=== PATIENT | female | born 1985 | race Caucasian/White ===

== ENCOUNTER 2016-05-06 16:25 | Emergency (ER) | payer MEDICAID ==
[~2016-05-06] VITALS: Wt 55.0 kg
[~2016-05-06 16:25] MED LIST: AMO500 PO; HYDR-3498 PO; IBUP400T22 PO; NAPR-688 PO
[2016-05-06] MEDS ORDERED: ACET500C5 PO (16:47)
[2016-05-06] MEDS ORDERED: NAPR-260 PO (16:47)
[2016-05-06] MEDS ORDERED: AMOX1TAB10 PO (16:52)
--- NOTE | 2016-05-06 16:58 | ERD ---
ER Documentation Chief Complaint Date/Time DATE: 05/06/16 TIME: 16:55 Chief Complaint sore throat and fever for a few days. no fevers. no coughing or congestion HPI This 30-year-old female who presents to emergency department today complaining of sore throat for the past 6 days, fever that started last night, pain with swallowing eating and some right ear pain and jaw pain. Denies any cough, vomiting or diarrhea. ROS All systems reviewed and are negative except as per history of present illness. Medications Home Meds Active Scripts Amoxicillin/Potassium Clav (Amox-Clav 875-125 mg Tablet) 875-125 mg Tab, 1 TAB PO BID for 7 Days, #14 TAB Prov:ZAIRE HUITRONC 05/06/16 Acetaminophen* (Tylophen*) 500 Mg Capsule, 1 CAP PO Q6H Y for PAIN AND OR ELEVATED TEMP, #30 CAP Prov:ZAIRE HUITRONC 05/06/16 Naproxen* (Naprosyn*) 500 Mg Tablet, 500 MG PO BID Y for PAIN AND/OR INFLAMMATION, #30 TAB Prov:ZAIRE HUITRONC 05/06/16 Ibuprofen* (Motrin*) 400 Mg Tab, 400 MG PO Q6, #30 TAB Prov:DAI CHANGC 11/10/15 Amoxicillin* (Amoxicillin*) 500 Mg Cap, 500 MG PO TID for 10 Days, CAP Prov:DAI CHANGC 11/10/15 Hydrocodone Bit-Acetaminophen* ([place]*) 5-325 Mg Tab, 1 TAB PO Q4H Y for PAIN, # 10 TAB Prov:KERRY HOWARD DO 08/11/15 Naproxen* (Naproxen*) 500 Mg Tablet, 500 MG PO BID Y for PAIN, #20 TAB Prov:KERRY HOWARD DO 08/11/15 Amoxicillin* (Amoxicillin*) 500 Mg Cap, 500 MG PO Q8, #30 CAP Prov:KERRY HOWARD DO 08/11/15 Allergies Allergies: Coded Allergies: No Known Allergy (Unverified , 09/13/12) PMhx/Soc History of Surgery: No Anesthesia Reaction: No Hx Neurological Disorder: No Hx Respiratory Disorders: No Hx Cardiac Disorders: No Hx Psychiatric Problems: No Hx Miscellaneous Medical Probl: No Hx Alcohol Use: No Hx Substance Use: No Hx Tobacco Use: No Physical Exam Vitals Vital Signs Date Time Temp Pulse Resp B/P Pulse Ox O2 Delivery O2 Flow Rate FiO2 05/06/16 16:39 98.9 100 20 122/73 100 Physical Exam Const: No acute distress Head: Atraumatic Eyes: Normal Conjunctiva ENT: Ears TMs normal. Nontender mastoid. Nose no drainage. Tenderness to palpation maxillary sinus. Throat with mild erythema no exudate. Neck: Full range of motion..~ No meningismus. Resp: Clear to auscultation bilaterally. No absent breath sounds. No wheezing. Cardio: Regular rate and rhythm, no murmurs Abd: Soft, non tender, non distended. Normal bowel sounds Skin: No petechiae or rashes Neur: Awake and alert Psych: Normal Mood and Affect Procedures/MDM This is a 30-year-old female who presents to the emergency department today complaining of sore throat, fever, right ear pain and sinus congestion for the past several days. Patient had some tenderness on her maxillary sinuses as well as some throat erythema. Patient was seen here in the [facility] area of the emergency department. She requires laboratory workup or imaging at this time. She is afebrile here in the emergency department her respirations are 20. She is not having any difficulty talking. I will treat the patient with Augmentin to cover her for sinusitis, possible strep pharyngitis or otitis media. She was also given a prescription for Naprosyn and Tylenol. Other differential to consider viral URI. I have low suspicion for peritonsillar abscess, retropharyngeal abscess, otitis externa, mastoiditis PNA , abscess, meningitis, sepsis, or other acute infectious bacterial process. At this time the patient is stable for discharge and outpatient management. Patient should follow up with their PCP in the next 1-2 days. They may return to the emergency department sooner for any persistent or worsening of symptoms. Patient understood and agreed with the plan. Departure Diagnosis: Primary Impression: Sore throat Condition: Fair Patient Instructions: Common Middle Ear Problems, Self-Care for Sore Throats Referrals: your PCP Additional Instructions: Call your primary care doctor TOMORROW for an appointment during the next 1-2 days.See the doctor sooner or return here if your condition worsens before your appointment time. Take antibiotics as prescribed Take Tylenol every 4 hours or Motrin every 6 hours or ZAIRE Wiley PA-C May 06, 2016 16:58
== END 2016-05-06 17:12 | disposition home or self-care (01) ==
LOC: FTE 16:25 → E/R 17:12
DX: J02.9 Acute pharyngitis, unspecified (principal)
CPT/HCPCS: 99283

== ENCOUNTER 2016-10-01 13:05 | Emergency (ER) | payer MEDICAID, OTHER ==
[~2016-10-01] VITALS: Ht 157.5 cm; Wt 78.0 kg
[~2016-10-01 13:05] MED LIST changes: +ACET500C5 PO; +AMOX1TAB10 PO; +NAPR-260 PO
[2016-10-01 13:11] VITALS: Ht 157.5 cm; Wt 78.0 kg
[2016-10-01] MEDS ORDERED: ONDANSETRON (ODT) 4 MG TAB ODT STA (13:49)
[2016-10-01] MEDS ORDERED: ACETAMINOPHEN 325 MG TAB PO ONE (14:00)
[2016-10-01] MEDS ORDERED: ACET500C5 PO (14:52)
[2016-10-01] MEDS ORDERED: ONDA4TAB14 PO (14:52)
--- NOTE | 2016-10-01 15:47 | ERD ---
ER Documentation Chief Complaint Date/Time DATE: 10/01/16 TIME: 15:44 Chief Complaint body aches, chills nausea x 3 days HPI 31-year-old female patient with no significant past medical history presents the ED complaining of body aches, chills, nausea, diarrhea that started yesterday. Reports that she has had 4-5 episodes of nonmucoid nonbloody diarrhea. States that she has some slight abdominal pain when she has episodes of diarrhea. Reports that she is nauseous but denies any vomiting. States that she ate pork skin and her symptoms started after this meal. States that her last menses was 1 week ago. Denies any chest pain, wheezing, shortness of breath, flank pain, dysuria, urgency, frequency. Denies any sick contacts. ROS All systems reviewed and are negative except as per history of present illness. Medications Home Meds Active Scripts Acetaminophen* (Tylophen*) 500 Mg Capsule, 1 CAP PO Q6H Y for PAIN AND OR ELEVATED TEMP, #20 CAP Prov:DAI CHANG PA-C 10/01/16 Ondansetron (Ondansetron Odt) 4 Mg Tab.rapdis, 4 MG PO Q6H Y for NAUSEA AND/OR VOMITING, #10 TAB Prov:DAI CHANG PA-C 10/01/16 Amoxicillin/Potassium Clav (Amox-Clav 875-125 mg Tablet) 875-125 mg Tab, 1 TAB PO BID for 7 Days, #14 TAB Prov:ZAIRE HUITRON PA-C 05/06/16 Acetaminophen* (Tylophen*) 500 Mg Capsule, 1 CAP PO Q6H Y for PAIN AND OR ELEVATED TEMP, #30 CAP Prov:ZAIRE HUITRONC 05/06/16 Naproxen* (Naprosyn*) 500 Mg Tablet, 500 MG PO BID Y for PAIN AND/OR INFLAMMATION, #30 TAB Prov:ZAIRE HUITRON PA-C 05/06/16 Ibuprofen* (Motrin*) 400 Mg Tab, 400 MG PO Q6, #30 TAB Prov:DAI CHANG PA-C 11/10/15 Amoxicillin* (Amoxicillin*) 500 Mg Cap, 500 MG PO TID for 10 Days, CAP Prov:DAI CHANG PA-C 11/10/15 Hydrocodone Bit-Acetaminophen* ([place]*) 5-325 Mg Tab, 1 TAB PO Q4H Y for PAIN, # 10 TAB Prov:KERRY HOWARD DO 08/11/15 Naproxen* (Naproxen*) 500 Mg Tablet, 500 MG PO BID Y for PAIN, #20 TAB Prov:KERRY HOWARD DO 08/11/15 Amoxicillin* (Amoxicillin*) 500 Mg Cap, 500 MG PO Q8, #30 CAP Prov:KERRY HOWARD DO 08/11/15 Allergies Allergies: Coded Allergies: No Known Allergy (Unverified , 09/13/12) PMhx/Soc History of Surgery: No Anesthesia Reaction: No Hx Neurological Disorder: No Hx Respiratory Disorders: No Hx Cardiac Disorders: No Hx Psychiatric Problems: No Hx Miscellaneous Medical Probl: No Hx Alcohol Use: No Hx Substance Use: No Hx Tobacco Use: No Physical Exam Vitals Vital Signs Date Time Temp Pulse Resp B/P Pulse Ox O2 Delivery O2 Flow Rate FiO2 10/01/16 13:11 99.1 110 24 128/71 99 Physical Exam Const: [id number], well-nourished. In no acute distress. Head: Atraumatic, normocephalic Eyes: Normal Conjunctiva without injection. No purulent discharge. ENT: Normal external ear, nose. Moist oropharynx without tonsillar exudates. Non -erythematous pharynx. Uvula midline. No drooling. No trismus. Neck: No cervical midline tenderness. Full range of motion. No meningismus. No cervical lymphadenopathy. No JVD. Resp: Clear to auscultation bilaterally. No wheezing, rhonchi, rales, or crackles. No accessory muscle use. No retractions. Cardio: Regular rate and rhythm. No murmurs, rubs or gallops. Abd: Soft, nontender, non distended. Normal bowel sounds. No palpable masses. No rebound tenderness. No guarding. Negative McBurney's point. Negative psoas sign. Negative obturator sign. Skin: No petechiae or rashes Back: No midline tenderness. No CVA tenderness. Ext: No cyanosis, or edema. Neur: Awake and alert. Normal gait. Normal coordination. Psych: Normal Mood and Affect Results 24 hrs Current Medications Medications (Trade) Dose Ordered Sig/Leena Route PRN Reason Start Time Stop Time Status Last Admin Dose Admin Ondansetron HCl (Zofran Odt) 4 mg ONCE STAT ODT 10/01/16 13:49 10/01/16 13:51 DC 10/01/16 14:01 Acetaminophen (Tylenol Tab) 650 mg ONCE ONCE PO 10/01/16 14:00 10/01/16 14:01 DC 10/01/16 14:01 Procedures/MDM This is a 31-year-old female patient with no sniffing a past medical history presents the ED complaining of body aches, chills, abdominal pain with diarrhea. Patient is afebrile and nontoxic-appearing. Patient has normal vital signs. Patient was given Zofran and Tylenol with improvement Patient's symptoms are likely viral etiology. Low suspicion for gastritis, GERD, peptic ulcer disease, cholecystitis, choledocholithiasis, cholangitis, pancreatitis, appendicitis, bowel obstruction, ileus, volvulus, nephrolithiasis, pyelonephritis, hepatitis, perforated viscus, diverticulitis, abdominal hernia, acute abdomen, mesenteric ischemia or other emergent conditions. Discharge medications: Tylenol, Zofran Follow up with primary care physician in 1-2 days. Instructed patient to return to the ED sooner for any worsening symptoms. Patient's questions were answered. Patient understood and agreed with discharge plan. Patient discharged stable. Departure Diagnosis: Primary Impression: Fever Fever type: unspecified Qualified Code: R50.9 - Fever, unspecified fever cause Additional Impressions: Diarrhea Diarrhea type: unspecified type Qualified Code: R19.7 - Diarrhea, unspecified type Nausea Condition: Stable Patient Instructions: Viral Syndrome (Adult), Vomiting And Diarrhea, Nonspecific (Adult) Referrals: [facility] YOU HAVE RECEIVED A MEDICAL SCREENING EXAM AND THE RESULTS INDICATE THAT YOU DO NOT HAVE A CONDITION THAT REQUIRES URGENT TREATMENT IN THE EMERGENCY DEPARTMENT. FURTHER EVALUATION AND TREATMENT OF YOUR CONDITION CAN WAIT UNTIL YOU ARE SEEN IN YOUR DOCTORS OFFICE WITHIN THE NEXT 1-2 DAYS. IT IS YOUR RESPONSIBILITY TO MAKE AN APPOINTMENT FOR FOLOW-UP CARE. IF YOU HAVE A PRIMARY DOCTOR --you should call your primary doctor and schedule an appointment IF YOU DO NOT HAVE A PRIMARY DOCTOR YOU CAN CALL OUR PHYSICIAN REFERRAL HOTLINE AT IF YOU CAN NOT AFFORD TO SEE A PHYSICIAN YOU CAN CHOSE FROM THE FOLLOWING [facility] [address] [facility] [address] [facility] [address] [facility] [address] [facility] [address] [facility]. [facility]. [address] [facility]. [facility] YOU HAVE RECEIVED A MEDICAL SCREENING EXAM AND THE RESULTS INDICATE THAT YOU DO NOT HAVE A CONDITION THAT REQUIRES URGENT TREATMENT IN THE EMERGENCY DEPARTMENT. FURTHER EVALUATION AND TREATMENT OF YOUR CONDITION CAN WAIT UNTIL YOU ARE SEEN IN YOUR DOCTORS OFFICE WITHIN THE NEXT 1-2 DAYS. IT IS YOUR RESPONSIBILITY TO MAKE AN APPOINTMENT FOR FOLOW-UP CARE. IF YOU HAVE A PRIMARY DOCTOR --you should call your primary doctor and schedule and appointment IF YOU DO NOT HAVE A PRIMARY DOCTOR YOU CAN CALL OUR PHYSICIAN REFERRAL HOTLINE AT . IF YOU CAN NOT AFFORD TO SEE A PHYSICIAN YOU CAN CHOSE FROM THE FOLLOWING [facility] INSTITUTIONS: [facility] [address] [place] [address] [facility] [address] [place] [address] [facility] [address] [place] [address] [facility] Additional Instructions: Call your primary care doctor TOMORROW for an appointment during the next 2-3 days.See the doctor sooner or return here if your condition worsens before your appointment time. DAI CHANG PA-C Oct 01, 2016 15:47 DAI CHANG PA-C Oct 01, 2016 15:47
== END 2016-10-01 15:52 | disposition home or self-care (01) ==
LOC: FTE 13:05
DX: R50.9 Fever, unspecified (principal); R19.7 Diarrhea, unspecified
CPT/HCPCS: Z7610 ×2; 99283

== ENCOUNTER 2018-09-17 23:51 | Emergency (ER) | payer BC, OTHER ==
[~2018-09-17] VITALS: Ht 157.5 cm; Wt 55.9 kg
[~2018-09-17 23:51] MED LIST changes: -AMO500 PO; +AMOX500C2 PO; +IBUP-1561 PO; -IBUP400T22 PO; -NAPR-260 PO; +NAPR-985 PO; +ONDA4TAB14 PO
[2018-09-17 23:54] VITALS: BP 123/68; PULSE 77; RESP 16; Ht 157.5 cm; Wt 55.9 kg
[2018-09-18] MEDS ORDERED: FLUORESCEIN STRIP LEFT EYE ONE (00:30)
[2018-09-18] MEDS ORDERED: TETRACAINE 0.5% 4 ML OPH LEFT EYE ONE (00:30)
[2018-09-18] MEDS ORDERED: OFLO5DRO46 LEFT EYE (00:49)
--- NOTE | 2018-09-18 00:55 | ERD ---
ER Documentation Chief Complaint Chief Complaint L eye pain x 3 hours, pt reports a "sopt" in her eye HPI Patient is a 32-year-old female, no past medical history, presents the ER for concerns of left eye pain x3 hours. Patient denies any falls or trauma. Patient is concerned given that she sees a yellow spot in her left eye. Patient denies any blurry vision. Patient denies any eye discharge. Patient is unsure if she got something in her eye. Patient denies any contact lens use. ROS All systems reviewed and are negative except as per history of present illness. Medications Home Meds Active Scripts Ofloxacin* (Ocuflox*) 0.3%-5 Ml Ophth Drops, 1 DROP LEFT EYE QID for 5 Days, #1 BOTTLE Prov:CAMILLE KILGORE PA-C 09/18/18 Acetaminophen* (Tylophen*) 500 Mg Capsule, 1 CAP PO Q6H PRN for PAIN AND OR ELEVATED TEMP, #20 CAP Prov:DAI CHANG PA-C 10/01/16 Ondansetron (Ondansetron Odt) 4 Mg Tab.rapdis, 4 MG PO Q6H PRN for NAUSEA AND/OR VOMITING, #10 TAB Prov:DAI CHANG PA-C 10/01/16 Amoxicillin/Potassium Clav (Amox-Clav 875-125 mg Tablet) 875-125 mg Tab, 1 TAB PO BID for 7 Days, #14 TAB Prov:ZAIRE HUITRON PA-C 05/06/16 Acetaminophen* (Tylophen*) 500 Mg Capsule, 1 CAP PO Q6H PRN for PAIN AND OR ELEVATED TEMP, #30 CAP Prov:ZAIRE HUITRON PA-C 05/06/16 Naproxen* (Naprosyn*) 500 Mg Tablet, 500 MG PO BID PRN for PAIN AND/OR INFLAMMATION, #30 TAB Prov:ZAIRE HUITRON PA-C 05/06/16 Ibuprofen* (Motrin*) 400 Mg Tab, 400 MG PO Q6, #30 TAB Prov:DAI CHANG PA-C 11/10/15 Amoxicillin* (Amoxicillin*) 500 Mg Cap, 500 MG PO TID for 10 Days, CAP Prov:DAI CHANG PA-C 11/10/15 Hydrocodone Bit-Acetaminophen* ([place]*) 5-325 Mg Tab, 1 TAB PO Q4H PRN for PAIN, #10 TAB Prov:KERRY HOWARD DO 08/11/15 Naproxen* (Naproxen*) 500 Mg Tablet, 500 MG PO BID PRN for PAIN, #20 TAB Prov:KERRY HOWARD DO 08/11/15 Amoxicillin* (Amoxicillin*) 500 Mg Cap, 500 MG PO Q8, #30 CAP Prov:KERRY HOWARD DO 08/11/15 Allergies Allergies: Coded Allergies: No Known Allergy (Unverified , 09/13/12) PMhx/Soc Medical and Surgical Hx: pt denies Medical Hx, pt denies Surgical Hx History of Surgery: No Anesthesia Reaction: No Hx Neurological Disorder: No Hx Respiratory Disorders: No Hx Cardiac Disorders: No Hx Psychiatric Problems: No Hx Miscellaneous Medical Probl: No Hx Alcohol Use: No Hx Substance Use: No Hx Tobacco Use: No Smoking Status: Never smoker FmHx Family History: No diabetes Physical Exam Vitals Vital Signs Date Temp Pulse Resp B/P (MAP) Pulse Ox O2 O2 Flow FiO2 Time Delivery Rate 09/17/18 98.8 77 16 123/68 100 23:54 (86) Physical Exam GENERAL: Well-developed, well-nourished female. Appears in no acute distress. HEAD: Normocephalic, atraumatic. EYE: Visual acuity w/ Snellen eye chart: See visual acuity under interventions Normal eye alignment. No orbital swelling or erythema. No proptosis. Pupils equal, round, and reactive to light. EOMs intact. No conjunctival discoloration, erythema or chemosis. Nevus noted below the left upper eyelid. Anterior chamber clear. No hyphema or hypopion. Velez lamp exam: No foreign bodies visualized with fluorescein dye. Corneal abrasion noted in the left eye in the 9 through 11 o'clock position. No dendritic lesions. Negative Gio sign. Tonopen: L R eye: 20 mmHg, L eye: 18 mm Hg NECK: Supple. No meningismus. Normal range of motion of the neck. LUNG: Clear to auscultation bilaterally. No rhonchi, wheezing, rales or coarse breath sounds. HEART: Regular rate and rhythm. No murmurs, rubs or gallops. EXTREMITIES: Equal pulses bilaterally. No peripheral clubbing, cyanosis or edema. No unilateral leg swelling. NEUROLOGIC: Alert and oriented. Moving all four extremities without any difficulty. Normal speech. Steady gait. SKIN: Normal color. Warm and dry. No rashes or lesions. Results 24 hrs Current Medications Medications Dose Sig/Leena Start Time Status Last (Trade) Ordered Route PRN Stop Time Admin Dose Reason Admin Tetracaine 1 drop ONCE ONCE 09/18/18 DC HCl LEFT EYE 00:30 09/18/18 (Tetracaine 00:31 0.5% Steri-Unit Meseret) Fluorescein 1 strip ONCE ONCE 09/18/18 DC Sodium LEFT EYE 00:30 09/18/18 (Guvtl-T-Rddt 00:31 p) Procedures/MDM MEDICAL DECISION MAKING: This is a 32-year-old female presents the ER for concerns of left eye pain for last 3 hours.. Vital signs were reviewed. Patient was afebrile. Visual acuity was assessed. See interventions. Under Velez lamp, corneal abrasion was noted. Negative Gio sign. Patient's intraocular pressures are within normal limits. At this time, patient presentation most consistent with a corneal abrasion. Patient was advised to follow-up with artificial glass eye maker. From information provided. Low suspicion for bacterial conjunctivitis, viral conjunctivitis, allergic conjunctivitis, corneal ulcer, retained eye foreign body, glaucoma, periorbital cellulitis, orbital cellulitis, hordeolum, dacrocystitis. She was nontoxic, [id number] prior to discharge. PRESCRIPTIONS: Ofloxacin eyedrops DISCHARGE: At this time, patient is stable for discharge and outpatient management. Supportive measures were discussed with patient including warm/cool compresses. Patient advised not to wear contact lenses or eye makeup. I have instructed the patient to follow-up with his/her primary care physician in 1-2 days. I have discussed with the patient the possibility of needing to see an artificial glass eye maker for further workup if symptoms persist. I have instructed the patient to promptly return to the ER for any new or worsening symptoms including increased pain, fever, swelling, redness, warmth, nausea, vomiting, . The patient and/or family expressed understanding of and agreement with this plan. All questions were answered. Home care instructions were provided. Disclaimer: Inadvertent spelling and grammatical errors are likely due to EHR/dictation software use and do not reflect on the overall quality of patient care. Also, please note that the electronic time recorded on this note does not necessarily reflect the actual time of the patient encounter. Departure Diagnosis: Primary Impression: Corneal abrasion, left Encounter type: initial encounter Qualified Codes: S05.02XA - Injury of conjunctiva and corneal abrasion without foreign body, left eye, initial encounter Additional Impression: Nevus of eye Laterality: left Qualified Codes: D31.92 - Benign neoplasm of unspecified part of left eye Condition: Fair Patient Instructions: Corneal Abrasion Referrals: [facility] YOU HAVE RECEIVED A MEDICAL SCREENING EXAM AND THE RESULTS INDICATE THAT YOU DO NOT HAVE A CONDITION THAT REQUIRES URGENT TREATMENT IN THE EMERGENCY DEPARTMENT. FURTHER EVALUATION AND TREATMENT OF YOUR CONDITION CAN WAIT UNTIL YOU ARE SEEN IN YOUR DOCTORS OFFICE WITHIN THE NEXT 1-2 DAYS. IT IS YOUR RESPONSIBILITY TO MAKE AN APPOINTMENT FOR FOLOW-UP CARE. IF YOU HAVE A PRIMARY DOCTOR --you should call your primary doctor and schedule an appointment IF YOU DO NOT HAVE A PRIMARY DOCTOR YOU CAN CALL OUR PHYSICIAN REFERRAL HOTLINE AT IF YOU CAN NOT AFFORD TO SEE A PHYSICIAN YOU CAN CHOSE FROM THE FOLLOWING [facility] [address] [facility]. [facility] [address] [facility]. [facility] [address] [facility] [address] [facility] [address] [facility]. [facility]. [address] [facility]. [facility] YOU HAVE RECEIVED A MEDICAL SCREENING EXAM AND THE RESULTS INDICATE THAT YOU DO NOT HAVE A CONDITION THAT REQUIRES URGENT TREATMENT IN THE EMERGENCY DEPARTMENT. FURTHER EVALUATION AND TREATMENT OF YOUR CONDITION CAN WAIT UNTIL YOU ARE SEEN IN YOUR DOCTORS OFFICE WITHIN THE NEXT 1-2 DAYS. IT IS YOUR RESPONSIBILITY TO MAKE AN APPOINTMENT FOR FOLOW-UP CARE. IF YOU HAVE A PRIMARY DOCTOR --you should call your primary doctor and schedule and appointment IF YOU DO NOT HAVE A PRIMARY DOCTOR YOU CAN CALL OUR PHYSICIAN REFERRAL HOTLINE AT . IF YOU CAN NOT AFFORD TO SEE A PHYSICIAN YOU CAN CHOSE FROM THE FOLLOWING [facility] INSTITUTIONS: [facility] [address] [place] [address] [facility] [address] [place] [address] [facility] [address] [place] [address] [facility] Hours: Mon - Fri 9:00 AM - 5:00 PM Additional Instructions: Follow-up with an eye doctor. See referral information. Call your primary care doctor TOMORROW for an appointment during the next 1-2 days.See the doctor sooner or return here if your condition worsens before your appointment time. CAMILLE KILGORE PA-C Sep 18, 2018 00:55
== END 2018-09-18 01:00 | disposition home or self-care (01) ==
LOC: FTE 23:51
DX: S05.02XA Injury of conjunctiva and corneal abrasion without foreign body, left eye, initial encounter (principal); D31.92 Benign neoplasm of unspecified part of left eye; X58.XXXA Exposure to other specified factors, initial encounter; Y92.9 Unspecified place or not applicable
CPT/HCPCS: 99283; Z7610